=== PATIENT | male | born 1975 | race Two or more races ===

== ENCOUNTER 2024-11-16 21:03 | Emergency (ER) | payer OTHER ==
[~2024-11-16] VITALS: Ht 177.8 cm; Wt 90.8 kg
--- NOTE | 2024-11-16 21:39 | ED.PDOC ---
Back pain HPI HPI Comments PT PRESENTS TO ED W/CC OF 04/10 NON RADIATING LOWER BACK PAIN X 3 HRS. PT DENIES ANY TRAUMA. SADDLE ANESTHESIA, LOSS OF BOWEL BLADDER CONTROL, PAINFUL URINATION, FREQUENCY, RETENTION, OR HESISTENCY. PT A&OX4, BP ELEVATED AT 174/114, ALL OTHER VSS, RR EVEN AND UNLABORED ON RA. Chief Complaint: Back Pain Time Seen by MD: 21:14 Reviewed Notes: Nurses Notes, Medications, Allergies Allergies: Coded Allergies: NO KNOWN ALLERGIES (Unverified , 11/16/24) Home Meds Active Scripts Tizanidine Hydrochloride (Tizanidine Hcl) 4 Mg Tab, 4 MG PO BID PRN for 5 Days, #10 TAB Prov:ALVARO MORENO [facility] 11/17/24 Methylprednisolone (Medrol Dosepak) 4 Mg Renato, 4 MG PO UD for 5 Days, #21 TAB UAD Prov:ALVARO MORENO [facility] 11/17/24 Information Source: Patient Mode of Arrival: Ambulatory Past Medical History PAST MEDICAL HISTORY: Denies Surgical History: Denies all surgeries Family History Family History: Reviewed,noncontributory to illness Social History Smoker: Non-Smoker Alcohol: Denies ETOH Use Drugs: Denies Drug Use Constitutional: denies: chills, diaphoresis, fatigue, fever, malaise, sweats, weakness, others EENTM: denies: blurred vision, double vision, ear bleeding, ear discharge, ear drainage, ear pain, ear ringing, eye pain, eye redness, hearing loss, mouth pain, mouth swelling, nasal discharge, nose bleeding, nose congestion, nose pain, photophobia, tearing, throat pain, throat swelling, voice changes, others Respiratory: denies: cough, hemoptysis, orthopnea, SOB at rest, shortness of breath, SOB with excertion, stridor, wheezing, others Cardiovascular: denies: chest pain, dizzy spells, diaphoresis, Dyspnea on exertion, edema, irregular heart beat, left arm pain, lightheadedness, palpitations, PND, syncope, others Gastrointestinal: denies: abdomen distended, abdominal pain, blood streaked bowels, constipated, diarrhea, dysphagia, difficulty swallowing, hematemesis, melena, nausea, poor appetite, poor fluid intake, rectal bleeding, rectal pain, vomiting, others Genitourinary: denies: burning, dysuria, flank pain, frequency, hematuria, incontinence, penile discharge, penile sore, pain, testicle pain, testicle swelling, urgency, others Neurological: denies: dizziness, fainting, headache, left sided numbness, left sided weakness, numbness, paresthesia, pre-existing deficit, right sided numbness, right sided weakness, seizure, speech problems, tingling, tremors, weakness, others Musculoskeletal: reports: back pain; denies: gout, joint pain, joint swelling, muscle pain, muscle stiffness, neck pain, others Integumetry: denies: bruises, change in color, change in hair/nails, dryness, laceration, lesions, lumps, rash, wounds, others Hematologic/Lymphatic: denies: anemia, blood clots, easy bleeding, easy bruising, swollen glands, others Endocrine: denies: excessive hunger, excessive sweating, excessive thirst, excessive urination, flushing, intolerance to cold, intolerance to heat, unexplained weight gain, unexplained weight loss, others Psychiatric: denies: anxiety, bipolar disorder, depression, hopeless, panic disorder, schizophrenia, sleepless, suicidal, others Physical Exam General Appearance: No Apparent Distress, Normal HEENT: Pharynx Normal Neck: Full Range of Motion, Non-Tender Respiratory: Lungs Clear, No Respiratory Distress, Normal Breath Sounds Cardiovascular: No Edema, No JVD, No Murmur, No Gallop, Normal Peripheral Pulses, Regular Rate/Rhythm Breast Exam: Deferred Gastrointestinal: No Organomegaly, Non Tender, No Pulsatile Mass, Normal Bowel Sounds, Soft Genitalia: Deferred Pelvic: Deferred Rectal: Deferred Extremities: Normal capillary refill, Normal inspection, Normal range of motion, Non-tender, No pedal edema Musculoskeletal : Location: Bilateral Extremity Location: Back (LATERAL LOWER BACK MUSCULATURE TENDER ON PALPATION NO TENDERNESS NOTED FOR L1-L5 CREPITUS OR STEP-OFFS STRENGTH AND SENSORY MOTION INTACT POSITIVE PEDAL PULSE NEGATIVE STRAIGHT LEG RAISE BILATERAL.) Apperance: Normal Neurologic: Alert, negotiator II-XII nml as Tested, No Motor Deficits, Normal Affect, Normal Mood, No Sensory Deficits Cerebellar Function: Normal Reflexes: Normal Skin: Dry, Normal Color, Warm Lymphatic: No Adenopathy Was a procedure done? Was a procedure done?: No Back Pain Differential Dx Differential Diagnosis: Fracture, Musculoskeletal Pain X-Ray, Labs, Meds, VS Vital Signs Date Time Temp Pulse Resp B/P (MAP) Pulse Ox O2 Delivery O2 Flow Rate FiO2 11/16/24 22:01 73 19 96 Room Air 11/16/24 22:01 99.1 73 19 147/94 (111) 96 99.1 11/16/24 21:03 98.4 79 18 174/114 (134) 96 98.4 Current Medications Medications (Trade) Dose Ordered Sig/Jorge Route Start Time Stop Time Status Last Admin Ketorolac Tromethamine (Toradol Injection) 60 mg ONCE ONCE IM 11/16/24 22:15 11/16/24 22:16 DC 11/16/24 22:20 Dexamethasone Sodium Phosphate (Decadron Injection) 10 mg ONCE ONCE IM 11/16/24 22:15 11/16/24 22:16 DC 11/16/24 22:19 Acetaminophen/ Hydrocodone Bitart ([place] 10/325MG Tab) 1 tab ONCE ONCE PO 11/16/24 22:15 11/16/24 22:16 DC 11/16/24 22:19 X-Ray, Labs, Meds, VS Comment X-RAY OF LUMBAR SPINE SHOWS NO ACUTE FRACTURES OSSEOUS LESIONS OR SUBLUXATIONS. SHE GIVEN TORADOL 60 G IM, DECADRON 10 MG IM, AND NORCO 10 MG P.O. REPORTS IMPROVEMENT PAIN AND FUNCTION STATES HE FEELS BETTER THAN BEFORE DISCHARGE AT THIS TIME. SCRIPT TRIAL OF MEDROL DOSEPAK AND TIZANIDINE 5 TO TAKE MEDICATIONS PRESCRIBED SIDE EFFECTS DISCUSSED. DISCUSSED ALTERNATING BETWEEN ICE AND HEAT. YOUR PCP IN 2-3 DAYS NECESSARY CONSIDER MRI OR FURTHER PHYSICAL THERAPY IF SYMPTOMS PERSIST FOR TURP PRECAUTIONS GIVEN PATIENT INDICATES UNDERSTANDING AND AGREES WITH DISCHARGE PLAN OF CARE. Time of 1ST Reevaluation: 21:39 Reevaluation 1ST: Unchanged Time of 2ND Reevaluation: 23:59 Reevaluation 2ND: Improved Patient Education/Counseling: Diagnosis, Treatment, Prognosis, Need For Follow Up Family Education/Counseling: No Family Present Departure 1 Departure Time of Disposition: 23:59 Impression: Primary Impression: Lumbar sprain Qualified Codes: S33.5XXA - Sprain of ligaments of lumbar spine, initial encounter Additional Impression: Musculoskeletal pain Disposition: 01 HOME / SELF CARE / HOMELESS Condition: Stable e-Prescriptions Tizanidine Hydrochloride (Tizanidine Hcl) 4 Mg Tab 4 MG PO BID PRN for 5 Days, #10 TAB Prov: ALVARO MORENO 11/17/24 Methylprednisolone (Medrol Dosepak) 4 Mg Renato 4 MG PO UD for 5 Days, #21 TAB UAD Prov: ALVARO MORENO 11/17/24 Discharged With: Self Critical Care Note Critical Care Time?: No Stability Stability form required: No ALVARO MORENO November 16, 2024 21:39
[2024-11-16 22:01] VITALS: BP 147/94; PULSE 73; RESP 19; TEMP 99.1; O2SAT 96
[2024-11-16] MEDS: HYDROcodone-ACET 10/325MG TAB PO ONE (22:19)
[2024-11-16] MEDS: DexAMETHasone SOD PHOS 10MG/1ML VIAL INJ IM ONE (22:19)
[2024-11-16] MEDS: KETOROLAC TROMETH 60MG/2ML VIAL IM ONE (22:20)
--- NOTE | 2024-11-16 23:55 | DVH ---
EXAMINATIONS: 2 views of the lumbar spine CLINICAL HISTORY: PAIN COMPARISON: None Findings and impression: No grossly displaced fractures or subluxations are evident on the provided views. Vertebral body heig hts appear maintained. Alignment is preserved. The sacroiliac joints appear symmetric. If symptoms persist, follow-up MRI may be considered to further evaluate.
[2024-11-17] MEDS ORDERED: TIZA-142 PO
[2024-11-17] MEDS ORDERED: METH4PAK PO
== END 2024-11-17 00:31 | disposition home or self-care (01) ==
LOC: ER 21:03
DX: S33.5XXA Sprain of ligaments of lumbar spine, initial encounter (principal); Z79.899 Other long term (current) drug therapy; X58.XXXA Exposure to other specified factors, initial encounter; Y93.89 Activity, other specified; Y92.89 Other specified places as the place of occurrence of the external cause; Y99.8 Other external cause status
CPT/HCPCS: 72100; 96372; 99284; J1100; J1885